=== PATIENT | male | born 1960 | race Caucasian/White ===

== ENCOUNTER 2017-02-05 09:45 | Emergency (ER) | payer OTHER ==
[2017-02-05 09:54] VITALS: O2SAT 95
[2017-02-05] MEDS ORDERED: LORAZEPAM 0.5 MG TAB PO ONE (09:55)
[2017-02-05] MEDS ORDERED: APAP/HYDROCODONE 325/5 TAB PO ONE (11:00)
[2017-02-05] MEDS ORDERED: APAP/HYDROCODONE 325/5 TAB ONE (11:04)
[2017-02-05 14:18] VITALS: BP 141/73; PULSE 66; RESP 22; TEMP 98.6
== END 2017-02-05 11:44 | disposition home or self-care (01) | DRG 90 ==
LOC: ED 09:45
DX: S06.0X0A Concussion without loss of consciousness, initial encounter (principal); S40.011A Contusion of right shoulder, initial encounter; W11.XXXA Fall on and from ladder, initial encounter
CPT/HCPCS: 70450; 73030; 99284